=== PATIENT | female | born 1985 | race African-American/Black ===

== ENCOUNTER 2016-11-18 00:22 | Emergency (ER) | payer OTHER ==
[~2016-11-18] VITALS: Ht 162.6 cm; Wt 52.2 kg
[2016-11-18 01:00] VITALS: BP 124/82
[2016-11-18 01:19] LABS: Basophils # (auto) 0 uL; Basophils % (auto) 0.4 % (0.0-2.0); Eosinophils # (auto) 0.1 uL; Eosinophils % (auto) 1.1 % (0.0-7.0); Hemoglobin 13.3 g/dL (12.2-16.2); Lymphocytes # (auto) 2.3 uL; Lymphocytes % (auto) 48.7 % (10.0-50.0); Mean Corpuscular Hemoglobin 30.8 pg (28.0-32.0); Mean Corpuscular Hgb Conc. 33.1 g/dL (32.0-36.0); Mean Corpuscular Volume 92.9 fL (80.0-100.0); Monocytes # (auto) 0.5 uL; Monocytes % (auto) 10.7 % (0.0-12.0); Neutrophils # (auto) 1.9 uL; Neutrophils % (auto) 39.1 % (37.0-80.0); Platelet Count (auto) 319 10^3/uL (140-450); Red Cell Distribution Width 13.1 % (11.6-16.0); White Blood Cell 4.8 10^3/uL (4.4-10.8)
[2016-11-18 01:54] LABS: Albumin 3.9 g/dL (3.4-5.0); BUN/Creatinine Ratio 15.6; Calcium 8.4 mg/dL (8.5-10.1); Potassium 3.9 mmol/L (3.5-5.1)
[2016-11-18 01:56] LABS: Bilirubin, Total 0.5 mg/dL (0.2-1.0); Total Protein 7.3 g/dL (6.4-8.2)
[2016-11-18 02:01] LABS: Urine Bilirubin Negative (Negative); Urine Blood Negative /uL (Negative); Urine Color Yellow (Yellow); Urine Glucose Normal (Normal); Urine Ketone TRACE (Negative); Urine Mucus FEW (None Seen); Urine Nitrite Negative (Negative); Urine RBC 5 /hpf (0 - 4); Urine Squamous Epithelial Cell FEW /hpf (<5); Urine pH 6.5 (5.0-8.0)
== END 2016-11-18 03:19 | disposition home or self-care (01) ==
LOC: ER 00:22
DX: N39.0 Urinary tract infection, site not specified (principal)
CPT/HCPCS: 36415; 80053; 81001; 81025; 85025

== ENCOUNTER 2020-02-23 08:10 | Emergency (ER) | payer MEDICAID, OTHER ==
[~2020-02-23] VITALS: Ht 162.6 cm; Wt 52.2 kg
[2020-02-23 09:38] LABS: Basophils # (auto) 0 10 ^3/uL (0-0.2); Basophils % (auto) 0.2 % (0.0-2.0); Eosinophils # (auto) 0 10 ^3/uL (0-0.8); Eosinophils % (auto) 0.1 % (0.0-7.0); Hematocrit 40.7 % (36.0-46.0); Hemoglobin 13.4 g/dL (12.2-16.2); Lymphocytes # (auto) 0.7 10 ^3/uL (0.4-5.4); Lymphocytes % (auto) 12.3 % (10.0-50.0); Mean Corpuscular Hemoglobin 31.1 pg (28.0-32.0); Mean Corpuscular Hgb Conc. 32.9 g/dL (32.0-36.0); Mean Corpuscular Volume 94.5 fL (80.0-100.0); Monocytes # (auto) 0.2 10 ^3/uL (0-1.3); Monocytes % (auto) 4.1 % (0.0-12.0); Neutrophils # (auto) 4.7 10 ^3/uL (1.6-8.6); Neutrophils % (auto) 83.3 % (37.0-80.0); Platelet Count (auto) 236 10^3/uL (140-450); Red Cell Distribution Width 13.7 % (11.8-14.3); White Blood Cell 5.6 10^3/uL (4.4-10.8)
[2020-02-23 10:00] LABS: Urine Bacteria FEW /hpf (None Seen); Urine Blood 3+ /uL (Negative); Urine Mucus FEW (None Seen); Urine Specific Gravity 1.021 (1.001-1.035); Urine WBC 4 /hpf (0 - 5)
[2020-02-23 10:00] LABS: Alanine Aminotransferase 16 U/L (13-56); Albumin 3.9 g/dL (3.4-5.0); Anion Gap 4 (5-15); Aspartate Aminotransferase 11 U/L (15-37); BUN/Creatinine Ratio 21.5; Blood Urea Nitrogen 17 mg/dL (7-18); Calcium 8.9 mg/dL (8.5-10.1); Carbon Dioxide 28 mmol/L (21-32); Chloride 105 mmol/L (98-107); GFR African American 108 mL/min; GFR Non-African American 89 mL/min; Glucose 109 mg/dL (74-106); Lipase 110 U/L (73-393); Potassium 4.1 mmol/L (3.5-5.1); Sodium 137 mmol/L (136-145)
[2020-02-23 10:05] LABS: Alkaline Phosphatase 36 U/L (45-117); Bilirubin, Total 0.4 mg/dL (0.2-1.0); Total Protein 7.9 g/dL (6.4-8.2)
[2020-02-23] MEDS ORDERED: SODIUM CHLORIDE 0.9% 1,000 ML IV ONE ×2 (10:10)
[2020-02-23] MEDS ORDERED: ONDANSETRON HCL 4 MG/2 ML VIAL IV ONE (10:15)
[2020-02-23 12:31] VITALS: BP 126/77
== END 2020-02-23 12:35 | disposition home or self-care (01) ==
LOC: ER 08:10
DX: N20.0 Calculus of kidney (principal); E86.0 Dehydration
CPT/HCPCS: 36415; 74176; 80053; 81001; 83690; 84484; 85025; 96360; 99284; J7030